=== PATIENT | male | born 1995 | race Two or more races ===

== ENCOUNTER 2021-04-04 13:03 | Outpatient (CLI) | payer OTHER | END 2021-04-04 13:11 | disposition home or self-care (01) | LOC: EDBD 13:03 → LAB 13:03 → EDSEX 13:03 → LAB 13:11 | DX: Z20.818 Contact with and (suspected) exposure to other bacterial communicable diseases (principal); Z20.828 Contact with and (suspected) exposure to other viral communicable diseases ==